=== PATIENT | male | born 1965 | race Caucasian/White ===

== ENCOUNTER 2017-10-30 05:44 | Emergency (ER) | payer OTHER ==
[2017-10-30] MEDS ORDERED: Amoxicillin 500 MG Cap ONE (05:57)
--- NOTE | 2017-10-30 09:27 | EDM.PDOC ---
ED HPI GENERAL MEDICAL PROBLEM - General Chief Complaint: Bite:Animal, Insect Stated Complaint: SPIDER BITE Time Seen by Provider: 10/30/17 07:00 Source of Information: Reports: Patient History Limitations: Reports: No Limitations - History of Present Illness INITIAL COMMENTS - FREE TEXT/NARRATIVE: According to patient he thinks he had a spider bite over his left jaw about 5 days ago, He developed a painful swelling, which he has been trying to squeeze and nothing is draining. the swelling has increased in size and painful. It is about the size of a olive. No fever or chills. No nausea or lethargy. HE otherwise feels fine. He does have diabetes well controlled and HTN. Onset Date: 10/25/17 Location: Reports: Other (left jaw) Quality: Reports: Ache, Dull Severity: Mild Improves with: Reports: None Worsens with: Reports: None Associated Symptoms: Denies: Confusion, Chest Pain, Cough, Fever/Chills, Headaches, Nausea/Vomiting, Rash, Seizure, Shortness of Breath, Weakness - Related Data Allergies Allergy/AdvReac Type Severity Reaction Status Date / Time No Known Allergies Allergy Verified 10/30/17 06:15 Home Meds: Home Meds Lisinopril [Prinivil] 20 mg PO DAILY 10/30/17 [History] metFORMIN [Glucophage] 1,000 mg PO WITHBREAKFAST 10/30/17 [History] Past Medical History Cardiovascular History: Reports: Hypertension Endocrine/Metabolic History: Reports: Diabetes, Type II ED ROS GENERAL - Review of Systems Review Of Systems: See Below Constitutional: Denies: Fever, Chills HEENT: Denies: Rhinitis, Throat Pain, Throat Swelling Respiratory: Denies: Cough, Sputum Cardiovascular: Denies: Chest Pain, Lightheadedness GI/Abdominal: Denies: Abdominal Pain, Nausea, Vomiting : Denies: Dysuria, Flank Pain Musculoskeletal: Denies: Joint Pain, Joint Swelling, Muscle Pain Skin: Reports: Erythema. Denies: Bruising, Pruritis, Rash ED EXAM, ANIMAL BITE - Physical Exam Exam: See Below Exam Limited By: No Limitations General Appearance: Alert, WD/WN, No Apparent Distress Eye Exam: Bilateral Eye: EOMI, Normal Inspection, PERRL Ears: Normal External Exam, Normal Canal, Hearing Grossly Normal, Normal TMs Nose: Normal Inspection, Normal Mucosa, No Blood Throat/Mouth: Normal Inspection, Normal Lips, Normal Teeth, Normal Gums, Normal Oropharynx, Normal Voice, No Airway Compromise Head: Atraumatic, Normocephalic Neck: Normal Inspection, Supple, Non-Tender, Full Range of Motion Respiratory/Chest: No Respiratory Distress, Lungs Clear, Normal Breath Sounds, No Accessory Muscle Use, Chest Non-Tender Cardiovascular: Normal Peripheral Pulses, Regular Rate, Rhythm, No Edema, No Gallop, No JVD, No Murmur, No Rub Extremities: Normal Inspection, Normal Range of Motion, Non-Tender, Normal Capillary Refill, No Pedal Edema Skin Exam: Normal Color, Other (Left jaw: there is a 2 cm by 1 cm ovoid raised swelling seen over the middle of the body of the mandible. The swelling is slightly erythematous. On palaption, the swelling is firm and fixed to skin, easily mobile over the deep tissue. mild tenderness to palpation.) Course - Vital Signs Text/Narrative:: Pt reassured that he has infected insect bite over the left jaw. He does not have any constitutional symptoms. He has been squeezing the lesion and spreading the infection in the skin plane. I have started him on amox 500mg 3 times daily. Advised to take extra strength tyelnol 3 times daily for pain. Advised intermittent warm compresses to the area 3-4 times daily. Followup with his primary care provider once back home. Return to emergency room, if he develops high grade fever, chills, lethargy or worsening painful swelling. Last Recorded V/S: Last Vital Signs Temp 98.2 F 10/30/17 06:00 Pulse 72 10/30/17 06:30 Resp 18 10/30/17 06:00 BP 142/87 H 10/30/17 06:30 Pulse Ox 98 10/30/17 06:00 Departure - Departure Time of Disposition: 07:30 Disposition: Home, Self-Care 01 Condition: Good Clinical Impression: Infected insect bite of face - Discharge Information Instructions: Amoxicillin capsules or tablets, Insect Bite, Adult, [id number] Referrals: PCP,None [Primary Care Provider] - Forms: ED Department Discharge Additional Instructions: Take Amoxicillin 500mg TID for 10 days. Follow upif gets more swollen, red, painful, starts draining purulent drainage, or fever. Apply warm compresses to infected area for 5 to 10 minutes 3 to 4 times a day. Can take tylenol 650 mg 3 times a day as needed for pain. Follow up with primary care provider in 1 week. - Problem List & Annotations (1) Infected insect bite of face SNOMED Code(s): 95219453 Code(s): S00.86XA - INSECT BITE (NONVENOMOUS) OF OTHER PART OF HEAD, INIT ENCNTR; L08.9 - LOCAL INFECTION OF THE SKIN AND SUBCUTANEOUS TISSUE, UNSP; W57.XXXA - BIT/STUNG BY NONVENOM INSECT & OTH NONVENOM ARTHROPODS, INIT Status : Acute - Problem List Review Problem List Initiated/Reviewed/Updated: Yes - Assessment/Plan Assessment:: Left Jaw infected insect bite Plan: Pt reassured that he has infected insect bite over the left jaw. He does not have any constitutional symptoms. He has been squeezing the lesion and spreading the infection in the skin plane. I have started him on amox 500mg 3 times daily. Advised to take extra strength tyelnol 3 times daily for pain. Advised intermittent warm compresses to the area 3-4 times daily. Followup with his primary care provider once back home. Return to emergency room, if he develops high grade fever, chills, lethargy or worsening painful swelling.
== END 2017-10-30 07:05 | disposition home or self-care (01) ==
LOC: LB.ED 05:44
DX: S00.86XA Insect bite (nonvenomous) of other part of head, initial encounter (principal); L08.9 Local infection of the skin and subcutaneous tissue, unspecified; I10 Essential (primary) hypertension; E11.9 Type 2 diabetes mellitus without complications; Z79.84 Long term (current) use of oral hypoglycemic drugs; W57.XXXA Bitten or stung by nonvenomous insect and other nonvenomous arthropods, initial encounter
CPT/HCPCS: 99282; A9270-GY

== ENCOUNTER 2019-09-03 16:20 | Emergency (ER) | payer BC, OTHER ==
[2019-09-03] MEDS ORDERED: Lidocaine 1% with EPINEPHrine 1:100,000 50 ML MDV INJECT SCH (17:00)
[2019-09-03] MEDS ORDERED: Bacitracin Oint 1 GM U/D Packet TOP ONE (17:15)
[2019-09-03] MEDS ORDERED: Diphtheria,Pertussis(Acell),Tetanus Vaccine 0.5 ML SDV IM ONE (17:21)
--- NOTE | 2019-09-03 18:34 | EDM.PDOC ---
ED HPI GENERAL MEDICAL PROBLEM - General Chief Complaint: General Stated Complaint: FISH HOOK Time Seen by Provider: 09/03/19 17:10 Source of Information: Reports: Patient History Limitations: Reports: No Limitations - History of Present Illness INITIAL COMMENTS - FREE TEXT/NARRATIVE: This is a 53yo M here for a fish hook of the right thumb. He notes his tetanus is not up to date. He denies any other health concerns or issues. Onset: Sudden Location: Reports: Upper Extremity, Right Severity: Mild Improves with: Reports: None Worsens with: Reports: Movement Associated Symptoms: Reports: No Other Symptoms Right Finger-Thumb Pain Score (Numeric/FACES): 3 - Related Data Allergies Allergy/AdvReac Type Severity Reaction Status Date / Time No Known Allergies Allergy Verified 09/03/19 17:09 Home Meds: Home Meds lisinopriL [Prinivil] 20 mg PO DAILY 10/30/17 [History] metFORMIN [Glucophage] 1,000 mg PO WITHBREAKFAST 10/30/17 [History] Past Medical History Cardiovascular History: Reports: Hypertension Endocrine/Metabolic History: Reports: Diabetes, Type II Social & Family History - Tobacco Use Smoking Status *Q: Never Smoker Second Hand Smoke Exposure: No - Caffeine Use Caffeine Use: Reports: Coffee - Alcohol Use Days Per Week of Alcohol Use: 3 Number of Drinks Per Day: 2 Total Drinks Per Week: 6 - Recreational Drug Use Recreational Drug Use: No ED ROS GENERAL - Review of Systems Review Of Systems: Comprehensive ROS is negative, except as noted in HPI. ED EXAM, GENERAL - Physical Exam Exam: See Below Exam Limited By: No Limitations General Appearance: Alert, WD/WN, No Apparent Distress Ears: Normal External Exam Nose: Normal Inspection Throat/Mouth: Normal Inspection Head: Atraumatic, Normocephalic Neck: Normal Inspection Respiratory/Chest: No Respiratory Distress Cardiovascular: Normal Peripheral Pulses GI/Abdominal: Normal Bowel Sounds Extremities: Normal Inspection, Other (fish hook of the right thumb) ED GENERAL MEDICAL PROCEDURES - Additional/Other Procedure(s) Other (Free Text) Procedure(s): Right thumb prepped sterilely and injected 2mL lidocaine 1% without epi. 30ga needle. Fish hook retracted with 22 ga needle. No complications. Dressing and bacitracin applied. Course - Vital Signs Last Recorded V/S: Last Vital Signs Temp 36.6 C 06/30/20 17:05 Pulse 87 09/03/19 17:05 Resp 18 09/03/19 17:05 BP 166/94 H 09/03/19 17:05 Pulse Ox 98 09/03/19 17:05 - Orders/Labs/Meds Orders: Active Orders 24 hr Category Date Time Status Vaccines to be Administered [RC] PER UNIT ROUTINE Care 09/03/19 17:22 Active Meds: Medications Discontinued Medications Generic Name Dose Route Start Last Admin Trade Name Freq PRN Reason Stop Dose Admin Diphtheria/Tetanus/Acell Pertussis 0.5 ml 09/03/19 17:21 09/03/19 17:30 Boostrix IM 09/03/19 17:22 0.5 ml .ONCE ONE Administration Departure - Departure Time of Disposition: 17:35 Disposition: Home, Self-Care 01 Condition: Good Clinical Impression: Fish hook injury of right thumb Qualifiers: Encounter type: initial encounter Qualified Code(s): S69.91XA - Unspecified injury of right wrist, hand and finger(s), initial encounter - Discharge Information Instructions: Puncture Wound, [id number] Referrals: PCP,None [Primary Care Provider] - Forms: ED Department Discharge Additional Instructions: *Keep the area clean and dry, apply bacitracin ointment as needed *Monitor the area for signs of infection; increased pain, redness, swelling, discharge If you have any questions or concerns please call us at [phone] Sepsis Event Note (ED) - Focused Exam Vital Signs: Vital Signs Temp Pulse Resp BP Pulse Ox 09/03/19 17:05 36.6 C 87 18 166/94 H 98 - Problem List & Annotations (1) Fish hook injury of right thumb SNOMED Code(s): 299863236 Code(s): S69.91XA - UNSP INJURY OF RIGHT WRIST, HAND AND FINGER(S), INIT ENCNTR Status: Acute Qualifiers: Encounter type: initial encounter Qualified Code(s): S69.91XA - Unspecified injury of right wrist, hand and finger(s), initial encounter - Problem List Review Problem List Initiated/Reviewed/Updated: Yes - My Orders Last 24 Hours: My Active Orders 09/03/19 17:22 Vaccines to be Administered [RC] PER UNIT ROUTINE - Assessment/Plan Last 24 Hours: My Active Orders 09/03/19 17:22 Vaccines to be Administered [RC] PER UNIT ROUTINE Plan: Counseled on wound care and f/u as needed for infection or other concerns. Rtc or ER as needed. Tetanus addressed.
== END 2019-09-03 17:40 | disposition home or self-care (01) ==
LOC: LB.ED 16:20
DX: S60.351A Superficial foreign body of right thumb, initial encounter (principal); E11.9 Type 2 diabetes mellitus without complications; I10 Essential (primary) hypertension; Z79.84 Long term (current) use of oral hypoglycemic drugs; Z79.899 Other long term (current) drug therapy; Z23 Encounter for immunization; W45.8XXA Other foreign body or object entering through skin, initial encounter
CPT/HCPCS: 90471; 90715; 99282